=== PATIENT | female | born 1950 | race Caucasian/White ===

== ENCOUNTER 2017-01-29 09:51 | Outpatient (CLI) | payer OTHER ==
--- NOTE | 2017-01-29 17:03 | Diagnostic Imaging Report ---
MAYRA RAGLAND (SYSTEMS LIBRARIAN) - OP [facility] [address] [facility] [address] [place], [place]. [address] Report Submission Date: Jan 29, 2017 10:27:57 AM CDT Patient Study Name: JERARDO SHEARER Date: Jan 29, 2017 9:57:22 AM CDT Modality Type: CR Gender: F Description: ABDOMEN : 54 Institution: [facility] Physician: MAYRA RAGLAND (SYSTEMS LIBRARIAN) - OP Examination: Obstruction series History: Abdominal discomfort Findings: 4 views obtained of the abdomen. No abnormal dilation of the small bowel. Air and stool throughout the large bowel. No suspicious calcification projecting over the renal fossa or the lower pelvic region. Osseous degenerative changes. Left hip prosthetic device. Impression: No ileus or obstruction. No suspicious calcifications by plain film sensitivity. Electronically signed on Jan 29, 2017 10:27:57 AM CDT by: Steve CHAIDEZ
== END 2017-01-29 09:52 ==
LOC: RAD 09:51
PROVIDERS: ATTEND Nurse Practitioner Family
DX: R10.9 Unspecified abdominal pain (principal)
CPT/HCPCS: 74020

== ENCOUNTER 2017-12-07 15:31 | Outpatient (CLI) | payer OTHER ==
[2017-12-07 17:10] LABS: BASOPHILS % 0.7 (0.0-1.5); EOSINOPHILS % 2.9 % (0.0-6.8); MEAN CORPUSCULAR HEMOGLOBIN 32.5 pg (28.0-34.0); MEAN CORPUSCULAR VOLUME 97.8 fl (80.0-100.0); MONOCYTES % 4.3 % (0.0-11.0); NEUTROPHILS # 3.4 # k/uL (1.4-7.7)
== END 2017-12-07 15:33 ==
LOC: LAB 15:31
PROVIDERS: ATTEND Internal Medicine Nephrology
DX: J06.9 Acute upper respiratory infection, unspecified (principal); N18.3 Chronic kidney disease, stage 3 (moderate); I10 Essential (primary) hypertension; Z68.42 Body mass index [BMI] 45.0-49.9, adult
CPT/HCPCS: 36415; 80069; 85025

== ENCOUNTER 2018-06-06 13:30 | Outpatient (CLI) | payer OTHER | END 2018-06-06 13:32 | LOC: LAB 13:30 | PROVIDERS: ATTEND Nurse Practitioner Family | DX: M10.9 Gout, unspecified (principal) | CPT/HCPCS: 36415; 84550 ==

== ENCOUNTER 2019-07-07 12:23 | Outpatient (CLI) | payer OTHER ==
[2019-07-07 12:55] LABS: eGFR (Non-African) 19
== END 2019-07-07 12:28 ==
LOC: LAB 12:23
PROVIDERS: ATTEND Nurse Practitioner Family
DX: N28.9 Disorder of kidney and ureter, unspecified (principal)
CPT/HCPCS: 36415; 80053